=== PATIENT | female | born 1950 | race Caucasian/White ===

== ENCOUNTER 2019-07-27 07:33 | Day surgery (SDC) | payer MEDICARE, BC ==
[~2019-07-27 07:33] MED LIST: Lactated Ringers 1,000 ML IV SCH; Sodium Chloride 0.9% 10 ML Syringe FLUSH PRN
--- NOTE | 2019-07-27 08:23 | PCM.HP.2 ---
H&P History of Present Illness - General Date of Service: 07/27/19 Admit Problem/Dx: Admission Diagnosis/Problem Admission Diagnosis/Problem Colonoscopy Source of Information: Patient, Old Records - History of Present Illness Initial Comments - Free Text/Narative: Pt with + cologuard on recent testing. Last scope was 12 yrs ago. - Related Data Allergies/Adverse Reactions: Allergies Allergy/AdvReac Type Severity Reaction Status Date / Time morphine Allergy Agitation Verified 07/27/19 07:56 Home Medications: Home Meds Metoprolol Succinate [Toprol XL 50mg] 50 mg PO DAILY 07/26/19 [History] Omeprazole Magnesium [Prilosec Otc] 20 mg PO DAILY 07/26/19 [History] Sertraline [Zoloft] 200 mg PO DAILY 07/26/19 [History] Simvastatin [Zocor] 30 mg PO DAILY 07/26/19 [History] Past Medical History Cardiovascular History: Reports: High Cholesterol, Hypertension Respiratory History: Reports: Bronchitis, Recurrent Gastrointestinal History: Reports: GERD Other Genitourinary History: CHRONIC GLOMERULONEPHRITIS W/ PATHOLOGICAL LESION IN KIDNEY. 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: Other Musculoskeletal History: BURSITIS OF RIGHT HIP Psychiatric History: Reports: Anxiety, Depression - Past Surgical History Female Surgical History: Reports: Section, Hysterectomy, Other (See Below) Other Female Surgeries/Procedures: CYSTORECTOCELE REPAIR Social & Family History - Tobacco Use Smoking Status *Q: Never Smoker - Caffeine Use Caffeine Use: Reports: Coffee, Soda, Tea - Recreational Drug Use Recreational Drug Use: No Drug Use in Last 12 Months: No H&P Review of Systems - Review of Systems: Review Of Systems: See Below General: Reports: No Symptoms HEENT: Reports: No Symptoms Pulmonary: Reports: No Symptoms Cardiovascular: Reports: No Symptoms Gastrointestinal: Reports: No Symptoms Genitourinary: Reports: No Symptoms Musculoskeletal: Reports: Back Pain, Muscle Pain Skin: Reports: No Symptoms Neurological: Reports: No Symptoms Exam - Exam Exam: See Below - Vital Signs Vital Signs: Last Vital Signs Temp 97.9 F 07/27/19 07:55 Pulse 62 07/27/19 07:55 Resp 16 07/27/19 07:55 BP 131/76 07/27/19 07:55 Pulse Ox 100 07/27/19 07:55 Weight: 71.259 kg - Exam General: Alert, Oriented Lungs: Clear to Auscultation, Normal Respiratory Effort Cardiovascular: Regular Rate, Regular Rhythm GI/Abdominal Exam: Normal Bowel Sounds, Soft, Non-Tender Extremities: Normal Inspection Sepsis Event Note - Focused Exam Vital Signs: Vital Signs Temp Pulse Resp BP Pulse Ox 07/27/19 07:55 97.9 F 62 16 131/76 100 Date Exam was Performed: 07/27/19 Time Exam was Performed: 08:20 *Q Meaningful Use (ADM) - VTE *Q VTE Pharmacological Contraindications *Q: Patient Scheduled Surgery - Problem List (1) Positive colorectal cancer screening using Cologuard test SNOMED Code(s): 162991626 ICD Code: R19.5 - OTHER FECAL ABNORMALITIES Status: Acute Current Visit: Yes Problem List Initiated/Reviewed/Updated: Yes Orders Last 24hrs: Active Orders 24 hr Category Date Time Status Patient Status [ADT] Routine ADT 07/27/19 07:30 Active Patient to Empty Bladder [RC] ASDIRECTED Care 07/27/19 07:30 Active Verify Patient Consent Obtain [RC] ASDIRECTED Care 07/27/19 07:30 Active Nothing Per Oral Diet [DIET] Diet 07/26/19 Dinner Ordered Lactated Ringers [Ringers, Lactated] 1,000 ml Med 07/27/19 07:30 Active IV ASDIRECTED Sodium Chloride 0.9% [Saline Flush] Med 07/27/19 07:30 Active 10 ml FLUSH ASDIRECTED PRN Peripheral IV Insertion Adult [OM.PC] Routine Oth 07/27/19 07:30 Ordered Resuscitation Status Routine Resus Stat 07/26/19 08:05 Ordered Medication Orders Lactated Ringer's (Ringers, Lactated) 1,000 mls @ 125 mls/hr IV ASDIRECTED [facility] Last Admin: 07/27/19 08:11 Dose: 125 mls/hr Sodium Chloride (Saline Flush) 10 ml FLUSH ASDIRECTED PRN PRN Reason: Keep Vein Open Assessment/Plan Comment:: for c scope. procedures and risks explained to the pt to include bleeding, infection, perforation. she asks us to proceed. - Mortality Measure Prognosis:: Good
--- NOTE | 2019-07-27 09:11 | PCM.OPNOTE ---
- General Post-Op/Procedure Note Date of Surgery/Procedure: 07/27/19 Operative Procedure(s): c scope Findings: product mgmt dev manager hemorrhoids Pre Op Diagnosis: + cologuard Post-Op Diagnosis: product mgmt dev manager hemorrhoids Anesthesia Technique: KIRILL Primary Surgeon: Kyle Rose Anesthesia Provider: Suzie Caceres Pathology: none Complications: None Condition: Good Free Text/Narrative:: see dictation
--- NOTE | 2019-07-27 12:16 | OR ---
DATE OF OPERATION: 07/27/2019 SURGEON: Kyle Rose MD PROCEDURE PERFORMED: Colonoscopy. PREOPERATIVE DIAGNOSIS: Positive Cologuard test. POSTOPERATIVE DIAGNOSIS: External hemorrhoids. INDICATIONS FOR PROCEDURE: This is a 69-year-old white female who has a previous history of normal colonoscopies. Recent Cologuard test was positive. She was offered and accepted colonoscopy. DESCRIPTION OF OPERATION: After an excellent IV sedation was administered, digital rectal exam was performed. No marked abnormality was noted. Flexible colonoscope was inserted and advanced to the cecum without difficulty. Prep was excellent. The following findings were noted: Ascending colon, unremarkable. Transverse colon, unremarkable. Descending colon, unremarkable. Sigmoid, unremarkable. Rectum, in the anus, she does have some very mild-appearing internal hemorrhoids/skin tags. The patient tolerated the procedure well, was taken to recovery room. RECOMMENDATIONS: Repeat scope in 10 years. /[id number] /JULOIL
== END 2019-07-27 10:02 | disposition home or self-care (01) ==
LOC: FB.SDS 07:33
PROVIDERS: ATTEND Surgery
DX: R19.5 Other fecal abnormalities (principal); K64.4 Residual hemorrhoidal skin tags; K64.8 Other hemorrhoids; E78.00 Pure hypercholesterolemia, unspecified; I12.9 Hypertensive chronic kidney disease with stage 1 through stage 4 chronic kidney disease, or unspecified chronic kidney disease; N18.9 Chronic kidney disease, unspecified; K21.9 Gastro-esophageal reflux disease without esophagitis; F32.9 Major depressive disorder, single episode, unspecified; F41.9 Anxiety disorder, unspecified; Z88.5 Allergy status to narcotic agent; Z79.899 Other long term (current) drug therapy
CPT/HCPCS: J7120